=== PATIENT | male | born 1935 | race Caucasian/White ===

== ENCOUNTER 2017-10-16 17:15 | Inpatient (IN) | payer MEDICARE ==
[~2017-10-16] VITALS: Ht 180.3 cm; Wt 103.3 kg
[~2017-10-16 17:15] MED LIST: AMIO5TAB PO; DONE10TA7 PO; FURO20TA PO; GABA300C5 PO; GLUCTAB PO; HYDR-3366 PO; LISI10TA3 PO; MEMA1TAB2 PO; PERI8.6T PO; POTA1TAB4 PO; PRIM50TA5 PO; SIMV40TA PO; TAMS0.4C4 PO; VITA200012 PO; WALKER/ADULT/FO1 MIS; WARF-23 PO
[2017-10-16 17:26] VITALS: BP 105/54; PULSE 85; RESP 18; TEMP 100.3; O2SAT 92
[2017-10-16] MEDS ORDERED: SODIUM CHLOR 0.9% 1000 ML INJ 1,000 ML IV ONE ×2 (19:13→19:43)
[2017-10-16] MEDS ORDERED: cefTRIAXone INJ 1,000 MG in SODIUM CHLORIDE 0.9% INJ 100 ML IV ONE (19:15)
[2017-10-16] MEDS ORDERED: INSULIN HUMAN REGULAR 1,000 UNITS/10 ML VIAL IV PUSH ONE ×2 (19:15→20:45)
[2017-10-16] MEDS ORDERED: SODIUM CHLORIDE 0.9% FLUSH 10 ML FLUSH IVF PRN (19:15)
[2017-10-16 19:17] VITALS: BP 84/53; PULSE 74; RESP 16; O2SAT 92
--- NOTE | 2017-10-16 19:24 | PD ---
HPI Chief Complaint: Complaint Time Seen by Provider: 19:02 Travel History International Travel<30 days: No Contact w/Intl Traveler<30days: No Traveled to known affect area: No History of Present Illness HPI This patient is brought in by his children. He has dementia and lives with his daughter. He has history of A. fib on Coumadin. He is a chronic smoker refusing to quit. He has a cane at home but usually refuses to use it. He's had low-grade temperature today. He has a chronic smoker's cough. He had a fall today. He did not strike his head. He denies any pain symptoms. He's been urinating frequently. He is a diabetic on metformin. He never checks his sugar. Symptoms moderately severe. No alleviating factors. Symptoms exacerbated by noncompliance and dementia PFSH Past Medical History Hx Anticoagulant Therapy: Yes Asthma: No Atrial Fibrillation: Yes Blood Disorders: No Anxiety: Yes Heart Rhythm Problems: Yes (AFIB) Cancer: Yes ([facility], 14 YRS AGO) Cardiac Catheterization: Yes Cardiovascular Problems: Yes Chemotherapy: No Chest Pain: Yes Congestive Heart Failure: Yes COPD: No Diabetes: Yes Patient Takes Glucophage: Yes Diminished Hearing: No Endocrine: Yes (NIDM) Gastrointestinal Disorders: No GERD: Yes Genitourinary: No Hypertension: Yes Immune Disorder: No Implanted Vascular Access Dvce: No Kidney Stones: No Musculoskeletal: No Neurologic: No Psychiatric: No Reproductive: No Respiratory: No Immunizations Current: Yes Myocardial Infarction: No Radiation Therapy: No Renal Failure: No Sleep Apnea: Yes (WEARS A MASK TO SLEEP) Thyroid Disease: No ?: Not Past Surgical History Abdominal Surgery: Yes ([facility], BILATERAL HERNIA ABD) AICD: No Arteriovenous Shunt: No Cardiac Surgery: No Cholecystectomy: Yes ([facility]) Ear Surgery: No Endocrine Surgery: No Eye Surgery: No Genitourinary Surgery: No Gynecologic Surgery: No Insulin Pump: No Joint Replacement: No Neurologic Surgery: No Oral Surgery: No Pacemaker: No Thoracic Surgery: No Tonsillectomy: Yes Other Surgery: Yes Social History Alcohol Use: No Tobacco Use: Yes (1 PPD) Substance Use: No Allergies-Medications (Allergen,Severity, Reaction): Coded Allergies: No Known Allergies (Verified Allergy, Unknown, 10/16/17) Reported Meds & Prescriptions Reported Meds & Active Scripts Active Furosemide 20 Mg Tab 20 Mg PO BID Glucophage XR (Metformin HCl) 500 Mg Brittany 500 Mg PO DAILY With evening meal Walker/Adult/Folding (Device) 1 Mis Mis Ea .ROUTE DIRECTED Tamsulosin (Tamsulosin HCl) 0.4 Mg Cap 0.4 Mg PO HS Amiodarone (Amiodarone HCl) 200 Mg Tab 1 Tab PO DAILY Lisinopril 10 Mg Tab 10 Mg PO BID K-Tab (Potassium Chloride) 20 Meq Tab 20 Meq PO DAILY Simvastatin 40 Mg Tab 40 Mg PO HS Primidone 50 Mg Tab 50 Mg PO DAILY Gabapentin 300 Mg Cap 300 Mg PO BID Reported Warfarin 5 Mg Tab 1 Mg PO DAILY 2 mg on , , , ball 1 mg mo, we Donepezil 10 Mg Tab 10 Mg PO HS Memantine 10 Mg Tab 10 Mg PO BID Review of Systems General / Constitutional: Positive: Fever Eyes: No: Visual changes HENT: No: Headaches Cardiovascular: Positive: Irregular Rhythm, No: Chest Pain or Discomfort Respiratory: No: Shortness of Breath Gastrointestinal: No: Abdominal Pain Genitourinary: Positive: Frequency, Incontinence Musculoskeletal: No: Pain Skin: Positive Rash Neurologic: No: Weakness Psychiatric: No: Depression Endocrine: No: Polydipsia Hematologic/Lymphatic: No: Easy Bruising Physical Exam Narrative GENERAL: Well-nourished, well-developed patient who is falling and incontinent of urine . SKIN: Focused skin assessment reveals no rash and nodules. Skin is Warm and dry. HEAD: Atraumatic. Normocephalic. EYES: Pupils equal and round. No scleral icterus. No injection or drainage. ENT: No nasal bleeding or discharge. Mucous membranes pink and moist. NECK: Trachea midline. No JVD. CARDIOVASCULAR: Irregularly irregular rhythm. No murmur appreciated. RESPIRATORY: No accessory muscle use. Clear to auscultation. Breath sounds equal bilaterally. GASTROINTESTINAL: Abdomen soft, non-tender, nondistended. Hepatic and splenic margins not palpable. MUSCULOSKELETAL: No obvious deformities. No clubbing. No cyanosis. No edema. NEUROLOGICAL: Awake and alert. No obvious cranial nerve deficits. Motor grossly within normal limits. Normal speech. PSYCHIATRIC: Appropriate mood and affect; insight and judgment reduced . : Noncircumcised penis. Foreskin is somewhat scarred and difficult to retract fully. Hygiene is poor. There is a candidal rash in the groin Data Data Last Documented VS Vital Signs Date Time Temp Pulse Resp B/P (MAP) Pulse Ox O2 Delivery O2 Flow Rate FiO2 10/16/17 20:58 99.2 77 16 98/58 (71) 97 Nasal Cannula 2.00 Orders Orders Complete Blood Count With Diff (10/16/17 19:13) Comprehensive Metabolic Panel (10/16/17 19:13) Beta Hydroxybutyrate (Acetone) (10/16/17 19:13) Urinalysis - C+S If Indicated (10/16/17 19:13) Blood Culture (10/16/17 19:13) Chest, Single Ap (10/16/17 19:13) Arterial Blood Gas (Abg) (10/16/17 19:13) Ecg Monitoring (10/16/17 19:13) Iv Access Insert/Monitor (10/16/17 19:13) Oximetry (10/16/17 19:13) Sodium Chlor 0.9% 1000 Ml Inj (Ns 1000 M (10/16/17 19:13) Sodium Chlor 0.9% 1000 Ml Inj (Ns 1000 M (10/16/17 19:43) Sodium Chloride 0.9% Flush (Ns Flush) (10/16/17 19:15) Ceftriaxone Inj (Rocephin Inj) (10/16/17 19:15) Insulin Human Regular Inj (Novolin R Inj (10/16/17 19:15) Prothrombin Time / Inr (Pt) (10/16/17 19:13) Electrocardiogram (10/16/17 ) Insulin Human Regular Inj (Novolin R Inj (10/16/17 20:45) Admit Order (Ed Use Only) (10/16/17 21:35) Labs Laboratory Tests Test 10/16/17 19:00 10/16/17 19:20 10/16/17 20:35 White Blood Count 9.5 TH/MM3 Red Blood Count 4.86 MIL/MM3 Hemoglobin 15.1 GM/DL Hematocrit 46.8 % Mean Corpuscular Volume 96.4 FL Mean Corpuscular Hemoglobin 31.0 PG Mean Corpuscular Hemoglobin Concent 32.2 % Red Cell Distribution Width 13.5 % Platelet Count 198 TH/MM3 Mean Platelet Volume 9.0 FL Neutrophils (%) (Auto) 87.5 % Lymphocytes (%) (Auto) 7.4 % Monocytes (%) (Auto) 4.2 % Eosinophils (%) (Auto) 0.3 % Basophils (%) (Auto) 0.6 % Neutrophils # (Auto) 8.3 TH/MM3 Lymphocytes # (Auto) 0.7 TH/MM3 Monocytes # (Auto) 0.4 TH/MM3 Eosinophils # (Auto) 0.0 TH/MM3 Basophils # (Auto) 0.1 TH/MM3 CBC Comment DIFF FINAL Differential Comment Prothrombin Time 25.1 SEC Prothromb Time International Ratio 2.5 RATIO Blood Urea Nitrogen 33 MG/DL Creatinine 2.00 MG/DL Random Glucose 629 MG/DL Total Protein 7.7 GM/DL Albumin 3.1 GM/DL Calcium Level 8.0 MG/DL Alkaline Phosphatase 125 U/L Aspartate Amino Transf (AST/SGOT) 25 U/L Alanine Aminotransferase (ALT/SGPT) 33 U/L Total Bilirubin 0.7 MG/DL Sodium Level 125 MEQ/L Potassium Level 4.9 MEQ/L Chloride Level 90 MEQ/L Carbon Dioxide Level 25.2 MEQ/L Anion Gap 10 MEQ/L Estimat Glomerular Filtration Rate 32 ML/MIN B-Hydroxybutyrate 0.45 MMOL/L Blood Gas Puncture Site RT RADIAL Blood Gas Patient Temperature 100.3 Blood Gas HCO3 23 mmol/L Blood Gas Base Excess -0.7 mmol/L Blood Gas Oxygen Saturation 89 % Arterial Blood pH 7.41 Arterial Blood Partial Pressure CO2 37 mmHG Arterial Blood Partial Pressure O2 67 mmHG Arterial Blood Oxygen Content 18.8 Vol % Arterial Blood Carboxyhemoglobin 2.8 % Arterial Blood Methemoglobin 1.1 % Blood Gas Hemoglobin 15.0 G/DL Oxygen Delivery Device ROOM AIR Blood Gas Inspired Oxygen 21 % Urine Color YELLOW Urine Turbidity SLIGHT Urine pH 5.5 Urine Specific [place] 1.028 Urine Protein NEG mg/dL Urine Glucose (UA) 1000 OR GREATER mg/dL Urine Ketones NEG mg/dL Urine Occult Blood TRACE Urine Nitrite NEG Urine Bilirubin NEG Urine Leukocyte Esterase NEG Urine RBC 0-3 /hpf Urine WBC 0-2 /hpf Urine Squamous Epithelial Cells 0-5 /hpf Microscopic Urinalysis Comment CULT NOT INDICATED MDM Medical Decision Making Medical Screen Exam Complete: Yes Emergency Medical Condition: Yes Medical Record Reviewed: Yes Differential Diagnosis Hyperglycemia, DKA, pneumonia Narrative Course I have reviewed the patient's electronic medical record. Patient is critically ill. He is critical high blood sugar and is hypotensive at 88 systolic blood pressure Patient's critical high Accu-Chek 2 IVs placed I gave him 2 L normal saline IV bolus and 10 units IV regular insulin and 1 g IV Rocephin CBC is normal Metabolic profile shows hyperglycemia with some renal insufficiency and normal bicarbonate LFTs are normal Urinalysis is clean I reviewed his chest x-ray which shows chronic interstitial changes the same as prior I reviewed his EKG which shows A. fib which is chronic Beta hydroxybutyrate is slightly elevated at 0.45 ABG shows normal pH and bicarbonate but slightly hypoxic After the above therapy sugar was in the 500s I gave him 10 units IV regular insulin for second time Sugar in the third check was 4:15 Patient's blood pressures come up to 98 systolic He never was tachycardic Is more stabilized now but will require hospitalization. I don't thing he retires intensive care at this time. I reviewed with hospitalist will admit He is getting his third liter of saline at this time Critical Care Narrative Aggregate critical care time was 40 minutes. Time to perform other separately billable procedures was not included in the critical care time. My time did not include minutes spent treating any other patients simultaneously or on activities that did not directly contribute to the patient's treatment. The services I provided to this patient were to treat and/or prevent clinically significant deterioration that could result in: Cardiac arrhythmia, cardiogenic shock, cardiopulmonary arrest I provided critical care services requiring my management, as noted below: Chart data review, documentation time, medication orders and management, vital sign assessments/reviewing monitor data, ordering and reviewing lab tests, ordering and interpreting/reviewing x-rays and diagnostic studies, care of the patient and discussion of the patient with the admitting physicians. Diagnosis Primary Impression: Hyperglycemia due to type 2 diabetes mellitus Qualified Codes: E11.65 - Type 2 diabetes mellitus with hyperglycemia Additional Impressions: Hypotension arterial Qualified Codes: I95.9 - Hypotension, unspecified Hypoxia Admitting Information Admitting Physician Requests: Barrett Juan MD Oct 16, 2017 19:24
[2017-10-16 19:31] LABS: BLOOD GAS BASE EXCESS -0.7 mmol/L (-2-2); BLOOD GAS CARBOXYHEMOGLOBIN 2.8 % (0-4); BLOOD GAS HCO3 23 mmol/L (22-26); BLOOD GAS METHEMOGLOBIN 1.1 % (0-2); BLOOD GAS O2 HGB SATURATION 89 % (90-100); BLOOD GAS OXYGEN CONTENT 18.8 Vol % (12.0-20.0); BLOOD GAS PCO2 37 mmHG (38-42); BLOOD GAS PO2 67 mmHG (61-120); CRITICAL VALUE YES; FIO2 21 %; OXYGEN DEVICE ROOM AIR; TEMP CORR TO 100.3
[2017-10-16 19:32] VITALS: O2SAT 94
[2017-10-16 19:32] LABS: DRAW SITE RT RADIAL; NUMBER OF ARTERIAL PUNCTURES 1; STAT YES; ULNAR PULSE PRESENT
[2017-10-16 19:39] VITALS: BP 96/52; PULSE 77; RESP 16; O2SAT 97
[2017-10-16 19:40] LABS: AUTOMATED NEUTROPHIL # 8.3 TH/MM3 (1.8-7.7); BASOPHIL # 0.1 TH/MM3 (0-0.2); BASOPHIL % 0.6 % (0.0-2.0); EOSINOPHIL % 0.3 % (0.0-4.0); HEMATOCRIT 46.8 % (39.0-51.0); HEMO FLAGS DIFF FINAL; LYMPH % 7.4 % (9.0-44.0); LYMPHOCYTE # 0.7 TH/MM3 (1.0-4.8); MEAN CELL VOLUME 96.4 FL (80.0-100.0); MEAN CORPUSCULAR HGB CONC 32.2 % (32.0-36.0); MONO % 4.2 % (0.0-8.0); NEUT % 87.5 % (16.0-70.0); PLATELET COUNT 198 TH/MM3 (150-450); RED BLOOD COUNT 4.86 MIL/MM3 (4.50-5.90); RED CELL DISTRIBUTION WIDTH 13.5 % (11.6-17.2); WHITE BLOOD COUNT 9.5 TH/MM3 (4.0-11.0)
[2017-10-16 19:57] LABS: CHLORIDE 90 MEQ/L (98-107); POTASSIUM 4.9 MEQ/L (3.5-5.1); SODIUM (NA) 125 MEQ/L (136-145)
[2017-10-16 20:00] LABS: ANION GAP 10 MEQ/L (5-15); BICARBONATE 25.2 MEQ/L (21.0-32.0); BLOOD UREA NITROGEN 33 MG/DL (7-18); INTERNATIONAL NORMALIZED RATIO 2.5 RATIO; PROTHROMBIN TIME - PATIENT 25.1 SEC (9.8-11.6)
[2017-10-16 20:03] LABS: ALT (GPT) 33 U/L (12-78); AST (GOT) 25 U/L (15-37); GLOMERULAR FILTRATION RATE 32 ML/MIN (>89)
[2017-10-16 20:04] LABS: TOTAL BILIRUBIN ADULT 0.7 MG/DL (0.2-1.0)
[2017-10-16 20:29] LABS: ALKALINE PHOSPHATASE 125 U/L (45-117); BETA-HYDROXYBUTYRATE 0.45 MMOL/L (0.00-0.39)
--- NOTE | 2017-10-16 20:42 | RADRPT ---
EXAM DATE/TIME: 10/16/2017 19:52 [facility] COMPARISON: CHEST PA & LAT, April 13, 2016, 14:26. CHEST SINGLE AP, February 14, 2015, 18:26. INDICATIONS : Shortness of breath. MEDICAL HISTORY : Hypertension. Congestive heart failure. SURGICAL HISTORY : Cardiac catheterization. ENCOUNTER: Initial ACUITY: 1 day PAIN SCORE: 0/10 LOCATION: Bilateral chest FINDINGS: Chronic interstitial prominence in the mid and lower lungs with no focal areas of consolidation. The findings are similar to prior chest x-rays in 2014 and 2015. The heart is upper limits normal size for AP technique. The central bronchopulmonary markings are indistinct and there is some questionabl e peribronchial thickening. The hemidiaphragms are well delineated. CONCLUSION: Chronic interstitial disease is similar in severity to prior chest x-rays. No focal areas of consoli dation. Jaron Martins MD on October 16, 2017 at 20:38 Board Certified Radiologist. This report was verified electronically.
[2017-10-16 20:44] LABS: GLUCOSE,URINE 1000 OR GREATER mg/dL (NEG); KETONE, URINE NEG (NEG); NITRITE,URINE NEG (NEG); PH, URINE 5.5 (5.0-8.5)
[2017-10-16 20:53] LABS: BLOOD, URINE TRACE (NEG)
[2017-10-16 20:54] LABS: COMMENT (UR) CULT NOT INDICATED; CULTURE IF INDICATED CULT NOT INDICATED; RBC, URINE 0-3 /hpf (0-3); SQUAMOUS EPITHELIAL CELL URINE 0-5 /hpf (0-5); URINE COLOR YELLOW (YELLW/STRAW); WBC, URINE 0-2 /hpf (0-5)
[2017-10-16 20:58] VITALS: BP 98/58; PULSE 77; RESP 16; TEMP 99.2; O2SAT 97
[2017-10-16] MEDS: SODIUM CHLOR 0.9% 1000 ML INJ 1,000 ML IV SCH (22:05)
[2017-10-16] MEDS ORDERED: RESP: ALBUTEROL 2.5 MG/IPRATROPIUM 0.5 MG NEB (PRN) NEB (22:15)
[2017-10-16] MEDS ORDERED: DEXTROSE 50% IN WATER 50 ML VIAL(D50) IV PUSH PRN (22:15)
[2017-10-16] MEDS ORDERED: NALOXONE HCL 0.4 MG/ML AMP IV PUSH PRN (22:15)
[2017-10-16] MEDS ORDERED: ONDANSETRON HCL 4 MG/2 ML VIAL IVP PRN (22:15)
[2017-10-16] MEDS ORDERED: GLUCAGON 1 MG/ML VIAL OTHER PRN (22:15)
[2017-10-16] MEDS ORDERED: ACETAMINOPHEN 325 MG TAB PO PRN (22:15)
[2017-10-16] MEDS ORDERED: LACTULOSE SYRUP 20 GM/30 ML CUP PO PRN (22:15)
[2017-10-16] MEDS ORDERED: SENNOSIDES 8.6 MG TAB PO PRN (22:15)
[2017-10-16] MEDS ORDERED: BISACODYL 10 MG SUPP RECTAL PRN (22:15)
[2017-10-16] MEDS ORDERED: SODIUM CHLORIDE 0.9% FLUSH 10 ML FLUSH IV FLUSH PRN (22:15)
[2017-10-16] MEDS ORDERED: MAGNESIUM HYDROXIDE SUSP 30 ML CUP PO PRN (22:15)
[2017-10-16 22:46] VITALS: BP 90/52; PULSE 78; RESP 16; O2SAT 97
[2017-10-17] MEDS ORDERED: INSULIN ASPART 1,000 UNITS/10 ML VIAL SQ ONE (02:00)
[2017-10-17] MEDS ORDERED: HEPARIN SODIUM - SQ 10,000 UNITS/ML VIAL SQ SCH (06:00)
[2017-10-17 06:23] LABS: AUTOMATED NEUTROPHIL # 4.9 TH/MM3 (1.8-7.7); BASOPHIL % 0.2 % (0.0-2.0); EOSINOPHIL # 0.1 TH/MM3 (0-0.4); EOSINOPHIL % 1.4 % (0.0-4.0); HEMATOCRIT 37.6 % (39.0-51.0); HEMO FLAGS DIFF FINAL; LYMPHOCYTE # 1.2 TH/MM3 (1.0-4.8); MEAN CELL VOLUME 93.6 FL (80.0-100.0); MEAN CORPUSCULAR HEMOGLOBIN 30.8 PG (27.0-34.0); MEAN CORPUSCULAR HGB CONC 32.9 % (32.0-36.0); MONO % 9.1 % (0.0-8.0); NEUT % 71.3 % (16.0-70.0); PLATELET COUNT 168 TH/MM3 (150-450); RED BLOOD COUNT 4.02 MIL/MM3 (4.50-5.90); RED CELL DISTRIBUTION WIDTH 13.2 % (11.6-17.2); WHITE BLOOD COUNT 6.8 TH/MM3 (4.0-11.0)
[2017-10-17 06:58] LABS: BICARBONATE 24.2 MEQ/L (21.0-32.0); POTASSIUM 3.6 MEQ/L (3.5-5.1)
[2017-10-17 07:17] LABS: CALCIUM-PROTEIN CORRECTED 7.6 MG/DL (8.5-10.1)
[2017-10-17 07:45] VITALS: O2SAT 92
[2017-10-17 08:00] VITALS: BP 124/66; PULSE 66; RESP 16; TEMP 98; O2SAT 91
[2017-10-17] MEDS ORDERED: INSULIN ASPART SUPPLEMENTAL SCALE SQ SCH (08:00)
[2017-10-17] MEDS ORDERED: WARF4TAB52 PO (10:13)
[2017-10-17] MEDS ORDERED: METF500T PO (10:13)
[2017-10-17] MEDS: SODIUM CHLOR 0.9% 1000 ML INJ 1,000 ML IV SCH ×2 (10:57→22:58)
[2017-10-17] MEDS: INSULIN ASPART SUPPLEMENTAL SCALE SQ SCH ×2 (10:58→13:16)
[2017-10-17] MEDS: SODIUM CHLORIDE 0.9% FLUSH 10 ML FLUSH IV FLUSH SCH ×2 (10:58→19:57)
[2017-10-17] MEDS: DOCUSATE SODIUM 50 MG/SENNA 8.6 MG TAB PO SCH ×2 (10:59→19:56)
--- NOTE | 2017-10-17 11:43 | MH ---
cc: MUNA DE OLIVEIRA M.D. DATE OF ADMISSION 10/16/2017 ADMISSION DIAGNOSIS 1. Severe hyperglycemia secondary to type 2 diabetes mellitus that was uncontrolled. 2. Type 2 diabetes mellitus with neuropathy and nephropathy. 3. Hyponatremia, likely secondary to his hyperglycemia. 4. Chronic dementia with acute increased confusion, likely secondary to his hyperglycemia. 5. Paroxysmal atrial fibrillation on amiodarone and warfarin. 6. Long history of cardiomyopathy and prior CHF - compensated. 7. Coronary artery disease. 8. Hypertension. 9. Hyperlipidemia. 10. Stage III chronic kidney disease. 11. COPD. 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 13. Atherosclerosis of the aorta. 14. Tortuous aorta. 15. Prior endovascular repair of abdominal aortic aneurysm. 16. BPH. 17. Obstructive sleep apnea but not using CPAP. 18. History of colon cancer with prior partial colectomy. 19. Smoker. PERTINENT HISTORY This is a 81-year-old [place] male who lives with his daughter. He was brought to the hospital by his daughter. He has dementia. He apparently uses a cane at home at times but usually refuses to. He had a fall on the day of admission. He did not strike his head. He apparently was a little more confused. On the day of admission he had possibly not taken his metformin for a few days. He does not check his blood sugar regularly. His daughter does try to check on his medications and set them out for him in a pill box container. He had been urinating more frequently in the last few days. He had a slight cough. There was no documentation of any increased cough than his usual smoker's cough. There was question of whether he had a low grade fever but it does not sound like it was checked at home. He came into the ED and his blood sugar was in the 600s. His sodium was low at 125. BUN was 33 and creatinine 2.0 with a low GFR of 32. The last one in his EHR that I have available is from 2016 and his GFR then was 53. He was admitted last night. There was some confusion. They originally called me for admission but when I checked his insurance through the call center they stated that he was insured by another primary insurance other than [facility]. Subsequently the family practice service was called and they have been putting orders in through the night for him, but this morning it was determined that he truly is a [facility] patient and I was contacted to take over his care. He seems to be much better. I talked to his daughter this morning and went over his healthcare with her and all his medications. She is actually in the room. I had seen the patient earlier this morning and I talked to her on the phone since she was not there when I initially saw the patient. She states that his mental status is back to baseline and he looks much better than he did yesterday. His blood sugar has come down in the 200s this morning. The history was not able to be obtained accurately from the patient so I looked at the history through [facility] EHR and talking with his daughter. PAST MEDICAL HISTORY He has a long history of heart disease. He has had cardiomyopathy and some CHF. He has had atrial fibrillation in the past with two cardioversions and has been on amiodarone for several years and apparently is in sinus rhythm as best I can tell from the records in the EHR. The last EKG that is available was in 2015 and it was sinus rhythm then. Prior Holter monitor showed sinus rhythm with some PACs. He is on warfarin and has been on it for many years. He has had type 2 diabetes mellitus as mentioned with nephropathy and neuropathy. He has stage III chronic kidney disease. He has dementia and is on Aricept and Namenda and sees Dr. Calvo. He also is on primidone for a cerebellar tremor. He has some COPD from smoking but does not use an inhaler on a regular basis and has a Ventolin inhaler but does not regularly use it. He has sleep apnea but his daughter states he has not used a CPAP in two or three years. He has an enlarged prostate and uses tamsulosin to help with his urination. He had colon cancer with partial colectomy around 1987. He had an abdominal aortic aneurysm that was endovascularly repaired in 2013. He had a cardiac cath done in [address] Abreu that showed some moderate disease of the proximal LAD of 50-60% stenosis. He had ostial stenosis of the left circumflex at 20%, proximal RCA at 30%. He has had no thyroid disease, stroke, seizure or peptic ulcer disease. PAST SURGICAL HISTORY 1. Tonsillectomy. 2. Partial colectomy. 3. Endovascular abdominal aortic aneurysm repair. ALLERGIES None. MEDICATIONS He according to the daughter takes: 1. Warfarin 1 mg tablet, two tablets on Monday and Monday, and one tablet on Monday, Monday, , Monday, Monday. 2. Amiodarone 200 mg a day. 3. Aspirin 325 mg a day. 4. Donepezil 10 mg a day. 5. Lasix 20 mg twice a day. 6. Gabapentin 300 mg twice a day. 7. Lisinopril 10 mg twice a day. 8. Memantine (Namenda) 10 mg b.i.d. 9. Metformin 500 mg a day. 10. Primidone 50 mg once a day. 11. Simvastatin 40 mg a day. 12. KCl 20 mEq a day. 13. Tamsulosin 0.4 mg a day. 14. Vitamin-D3 2000 units a day. FAMILY HISTORY His mother in her 30s of a cerebral aneurysm rupture. His father at 75 of possible bladder cancer. SOCIAL HISTORY He lives with his daughter. His brother also lives here. He is a smoker. She thinks he smokes a half-pack to one pack a day. He smoked since he was a teenager. He does not use alcohol. He is . 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 REVIEW OF SYSTEMS GENERAL: No documented fever, chills, sweats. HEENT: Does not complain of any runny nose or sore throat. PULMONARY: He reportedly has occasional cough that is probably from his smoking and not noted to be any respiratory distress. CARDIOVASCULAR: Has not complained of any chest pain. GI: He had not had any vomiting or diarrhea or bleeding. No complaint of pain. : He had been urinating more frequently for the last few days. NEUROLOGIC: Chronic dementia. Slightly more confused likely due to his elevated blood sugar that is improved now that his sugar has come down. PHYSICAL EXAMINATION GENERAL: A pleasant elderly male who is awake and conversant. He has some dementia so his history is not reliable. He denied any medical problems. VITAL SIGNS: Temperature has been 99.2 to 98. Respiratory rate is 16. Pulses range from 66-78. BP is now 124/66. O2 sat has ranged from 91-92% on room air. His O2 sats on 2 liters went up to 94-97%. HEENT: Pupils equal. Sclera non-icteric. Nose without lesion. Mouth without inflammation. NECK: Without JVD. No adenopathy. HEART: Regular rate and rhythm. A faint murmur. LUNGS: Appear clear. ABDOMEN: Soft, nontender, no masses. : In the scrotal area he has some redness and rash, probably due to a candidal organism and inflammation. EXTREMITIES: No edema. Pulses 1+. NEUROLOGIC: Motor strength is symmetrical. Sensation intact. Cranial nerves intact. He has dementia. LABORATORY As mentioned his sugar was 629 last night with a BUN of 33, creatinine 2.0 and sodium 125. AST, ALT and alkaline phosphatase were normal. Albumin was a little low at 3.1. Alkaline phosphatase was 125. Labs this morning at 4:50 a.m.: BUN 27, creatinine 1.6, GFR 42, glucose 293. Urine was negative. INR was 2.5. IMAGING Chest x-ray showed chronic interstitial disease similar to prior chest x-rays. ASSESSMENT As noted. PLAN The patient will be put back on metformin. He will continue to be monitored with sliding scale. Will resume his regular medicines. He will be maintained on his warfarin. Will get a physical therapy consult to ambulate him and case management consult. His daughter would like for him to go home with home health care. His electrolyte imbalances seem to have improved. He was given an injection of ceftriaxone last night in the ED but I do not think he has any underlying infection so I am not going to maintain him on any antibiotics. He was put on heparin subcu last night for DVT prophylaxis but he does not need that since he is on warfarin, so the heparin will be stopped. I will give him some Nystatin cream to apply to the scrotal area. Will cut his IV fluids back a little in view of his history of CHF. I will hold his Lasix for now. MD FERNANDA Hamlin/HALINA /10:27 AM /11:01 AM
[2017-10-17 12:00] VITALS: BP 116/64; PULSE 75; RESP 18; TEMP 98.1; O2SAT 94
--- NOTE | 2017-10-17 13:03 | EKG ---
Date Performed: 10/16/2017 Time Performed: 19:35:49 PTAGE: 81 years EKG: Sinus rhythm NONSPECIFIC ST & T-WAVE ABNORMALITY BORDERLINE ECG PREVIOUS TRACING : 04/13/2016 14.08 Compared to prior tracing no significant change DOCTOR: Chris Murillo Interpretating Date/Time 10/17/2017 13:01:55
[2017-10-17] MEDS ORDERED: DO NOT ADM ANY ANTICOAGULANT DRUGS OTHER PRN (15:00)
[2017-10-17 16:00] VITALS: BP 123/59; PULSE 67; RESP 16; TEMP 97.7; O2SAT 95
[2017-10-17] MEDS ORDERED: WARFARIN SOD 1 MG TAB PO SCH (16:00)
[2017-10-17] MEDS: [UNRECOGNIZED DRUG - REMARK] SQ SCH ×2 (16:46→19:57)
[2017-10-17] MEDS: metFORMIN HCL 500 MG TAB PO SCH (16:47)
[2017-10-17] MEDS: NYSTATIN 100,000 UNIT/GM CREAM 15 GM TOPICAL SCH (19:56)
[2017-10-17] MEDS: GABAPENTIN 300 MG CAP PO SCH (19:57)
[2017-10-17] MEDS: LISINOPRIL 10 MG TAB PO SCH (19:57)
[2017-10-17] MEDS: CALCIUM CARBONATE 1.25 GM (CA 500 MG) TAB PO SCH (19:57)
[2017-10-17] MEDS: MEMANTINE HCL 10 MG TAB PO SCH (19:57)
[2017-10-17 20:00] VITALS: BP 117/57; PULSE 80; RESP 20; TEMP 98.9; O2SAT 92; O2SAT 93
[2017-10-17] MEDS ORDERED: TAMSULOSIN HCL 0.4 MG CAP PO SCH (21:00)
[2017-10-17] MEDS ORDERED: FUROSEMIDE 20 MG TAB PO SCH (21:00)
[2017-10-17] MEDS ORDERED: INSULIN DETEMIR 100 UNITS/ML VIAL SQ SCH (21:00)
[2017-10-17] MEDS ORDERED: DONEPEZIL HCL 5 MG TAB PO SCH (21:00)
[2017-10-17] MEDS ORDERED: PRAVASTATIN SOD 80 MG TAB PO SCH (21:00)
[2017-10-18] VITALS: BP 107/52; PULSE 64; RESP 20; TEMP 98.8; O2SAT 97
[2017-10-18 00:45] LABS: C. DIFF EPI 027 PRESUMPTIVE NEGATIVE (NEGATIVE)
[2017-10-18 06:35] LABS: POTASSIUM 3.4 MEQ/L (3.5-5.1); PROTHROMBIN TIME - PATIENT 20.2 SEC (9.8-11.6)
[2017-10-18 06:46] LABS: AUTOMATED NEUTROPHIL # 4.7 TH/MM3 (1.8-7.7); BASOPHIL % 0.2 % (0.0-2.0); EOSINOPHIL # 0.1 TH/MM3 (0-0.4); EOSINOPHIL % 1.6 % (0.0-4.0); HEMATOCRIT 40.2 % (39.0-51.0); HEMO FLAGS DIFF FINAL; LYMPHOCYTE # 2.4 TH/MM3 (1.0-4.8); MEAN CELL VOLUME 96.3 FL (80.0-100.0); MEAN CORPUSCULAR HEMOGLOBIN 30.7 PG (27.0-34.0); MEAN CORPUSCULAR HGB CONC 31.8 % (32.0-36.0); NEUT % 57.2 % (16.0-70.0); PLATELET COUNT 173 TH/MM3 (150-450); RED BLOOD COUNT 4.17 MIL/MM3 (4.50-5.90); RED CELL DISTRIBUTION WIDTH 13.6 % (11.6-17.2); WHITE BLOOD COUNT 8.1 TH/MM3 (4.0-11.0)
[2017-10-18 06:59] LABS: BICARBONATE 22.5 MEQ/L (21.0-32.0)
[2017-10-18 08:00] VITALS: BP 109/62; PULSE 67; RESP 12; TEMP 97.2; O2SAT 93; O2SAT 94
[2017-10-18] MEDS: [UNRECOGNIZED DRUG - REMARK] SQ SCH ×2 (08:00→12:00)
[2017-10-18] MEDS: metFORMIN HCL 500 MG TAB PO SCH (08:02)
[2017-10-18] MEDS: GABAPENTIN 300 MG CAP PO SCH (08:03)
[2017-10-18] MEDS: CALCIUM CARBONATE 1.25 GM (CA 500 MG) TAB PO SCH (08:03)
[2017-10-18] MEDS: LISINOPRIL 10 MG TAB PO SCH (08:03)
[2017-10-18] MEDS: MEMANTINE HCL 10 MG TAB PO SCH (08:03)
[2017-10-18] MEDS: NYSTATIN 100,000 UNIT/GM CREAM 15 GM TOPICAL SCH (08:05)
[2017-10-18] MEDS ORDERED: PRIMIDONE 50 MG TAB PO SCH (09:00)
[2017-10-18] MEDS: DOCUSATE SODIUM 50 MG/SENNA 8.6 MG TAB PO SCH (09:00)
[2017-10-18] MEDS ORDERED: POTASSIUM CHLORIDE 20 MEQ CONTROLLED RELEASE TAB PO SCH (09:00)
[2017-10-18] MEDS: SODIUM CHLORIDE 0.9% FLUSH 10 ML FLUSH IV FLUSH SCH (09:00)
[2017-10-18] MEDS ORDERED: AMIODARONE 200 MG TAB PO SCH (09:00)
[2017-10-18] MEDS: SODIUM CHLOR 0.9% 1000 ML INJ 1,000 ML IV SCH (09:51)
[2017-10-18 12:00] VITALS: BP 125/65; PULSE 60; RESP 16; TEMP 96.9; O2SAT 97
[2017-10-18] MEDS ORDERED: POTASSIUM CHLORIDE 20 MEQ CONTROLLED RELEASE TAB PO ONE (12:00)
--- NOTE | 2017-10-18 13:26 | HHI.PR ---
Subjective Remarks Patient has no complaints. He is not in any distress. His blood sugars were much better today. Objective Vitals Vital Signs Date Time Temp Pulse Resp B/P (MAP) Pulse Ox O2 Delivery O2 Flow Rate FiO2 10/18/17 08:00 97.2 67 12 109/62 (78) 94 10/18/17 08:00 93 21 10/18/17 00:00 98.8 64 20 107/52 (70) 97 10/17/17 20:00 98.9 80 20 117/57 (77) 93 10/17/17 20:00 92 21 10/17/17 16:00 97.7 67 16 123/59 (80) 95 10/18/17 10/18/17 10/19/17 15:00 23:00 07:00 Intake Total 242 ml Balance 242 ml Intake Oral 242 ml # Voids 2 # Bowel Movements 1 Result Diagram: 10/18/17 0500 10/18/17 0500 Other Results Laboratory Tests Test 10/16/17 19:00 10/16/17 19:20 10/16/17 20:35 10/17/17 04:50 White Blood Count 9.5 TH/MM3 6.8 TH/MM3 Red Blood Count 4.86 MIL/MM3 4.02 MIL/MM3 Hemoglobin 15.1 GM/DL 12.4 GM/DL Hematocrit 46.8 % 37.6 % Mean Corpuscular Volume 96.4 FL 93.6 FL Mean Corpuscular Hemoglobin 31.0 PG 30.8 PG Mean Corpuscular Hemoglobin Concent 32.2 % 32.9 % Red Cell Distribution Width 13.5 % 13.2 % Platelet Count 198 TH/MM3 168 TH/MM3 Mean Platelet Volume 9.0 FL 9.1 FL Neutrophils (%) (Auto) 87.5 % 71.3 % Lymphocytes (%) (Auto) 7.4 % 18.0 % Monocytes (%) (Auto) 4.2 % 9.1 % Eosinophils (%) (Auto) 0.3 % 1.4 % Basophils (%) (Auto) 0.6 % 0.2 % Neutrophils # (Auto) 8.3 TH/MM3 4.9 TH/MM3 Lymphocytes # (Auto) 0.7 TH/MM3 1.2 TH/MM3 Monocytes # (Auto) 0.4 TH/MM3 0.6 TH/MM3 Eosinophils # (Auto) 0.0 TH/MM3 0.1 TH/MM3 Basophils # (Auto) 0.1 TH/MM3 0.0 TH/MM3 CBC Comment DIFF FINAL DIFF FINAL Differential Comment Prothrombin Time 25.1 SEC Prothromb Time International Ratio 2.5 RATIO Blood Urea Nitrogen 33 MG/DL 27 MG/DL Creatinine 2.00 MG/DL 1.60 MG/DL Random Glucose 629 MG/DL 293 MG/DL Total Protein 7.7 GM/DL 6.1 GM/DL Albumin 3.1 GM/DL Calcium Level 8.0 MG/DL 7.1 MG/DL Alkaline Phosphatase 125 U/L Aspartate Amino Transf (AST/SGOT) 25 U/L Alanine Aminotransferase (ALT/SGPT) 33 U/L Total Bilirubin 0.7 MG/DL Sodium Level 125 MEQ/L 135 MEQ/L Potassium Level 4.9 MEQ/L 3.6 MEQ/L Chloride Level 90 MEQ/L 102 MEQ/L Carbon Dioxide Level 25.2 MEQ/L 24.2 MEQ/L Anion Gap 10 MEQ/L 9 MEQ/L Estimat Glomerular Filtration Rate 32 ML/MIN 42 ML/MIN B-Hydroxybutyrate 0.45 MMOL/L Blood Gas Puncture Site RT RADIAL Blood Gas Patient Temperature 100.3 Blood Gas HCO3 23 mmol/L Blood Gas Base Excess -0.7 mmol/L Blood Gas Oxygen Saturation 89 % Arterial Blood pH 7.41 Arterial Blood Partial Pressure CO2 37 mmHG Arterial Blood Partial Pressure O2 67 mmHG Arterial Blood Oxygen Content 18.8 Vol % Arterial Blood Carboxyhemoglobin 2.8 % Arterial Blood Methemoglobin 1.1 % Blood Gas Hemoglobin 15.0 G/DL Oxygen Delivery Device ROOM AIR Blood Gas Inspired Oxygen 21 % Urine Color YELLOW Urine Turbidity SLIGHT Urine pH 5.5 Urine Specific [place] 1.028 Urine Protein NEG mg/dL Urine Glucose (UA) 1000 OR GREATER mg/dL Urine Ketones NEG mg/dL Urine Occult Blood TRACE Urine Nitrite NEG Urine Bilirubin NEG Urine Leukocyte Esterase NEG Urine RBC 0-3 /hpf Urine WBC 0-2 /hpf Urine Squamous Epithelial Cells 0-5 /hpf Microscopic Urinalysis Comment CULT NOT INDICATED Protein Corrected Calcium 7.6 MG/DL Test 10/17/17 22:30 10/18/17 05:00 Stool C. difficile Toxin (PCR) NEGATIVE Stl C. difficile Toxin Epiderm 027 PRESUMPTIVE NEGATIVE White Blood Count 8.1 TH/MM3 Red Blood Count 4.17 MIL/MM3 Hemoglobin 12.8 GM/DL Hematocrit 40.2 % Mean Corpuscular Volume 96.3 FL Mean Corpuscular Hemoglobin 30.7 PG Mean Corpuscular Hemoglobin Concent 31.8 % Red Cell Distribution Width 13.6 % Platelet Count 173 TH/MM3 Mean Platelet Volume 8.8 FL Neutrophils (%) (Auto) 57.2 % Lymphocytes (%) (Auto) 30.0 % Monocytes (%) (Auto) 11.0 % Eosinophils (%) (Auto) 1.6 % Basophils (%) (Auto) 0.2 % Neutrophils # (Auto) 4.7 TH/MM3 Lymphocytes # (Auto) 2.4 TH/MM3 Monocytes # (Auto) 0.9 TH/MM3 Eosinophils # (Auto) 0.1 TH/MM3 Basophils # (Auto) 0.0 TH/MM3 CBC Comment DIFF FINAL Differential Comment Prothrombin Time 20.2 SEC Prothromb Time International Ratio 2.0 RATIO Blood Urea Nitrogen 16 MG/DL Creatinine 1.00 MG/DL Random Glucose 155 MG/DL Calcium Level 7.5 MG/DL Sodium Level 138 MEQ/L Potassium Level 3.4 MEQ/L Chloride Level 107 MEQ/L Carbon Dioxide Level 22.5 MEQ/L Anion Gap 9 MEQ/L Estimat Glomerular Filtration Rate 72 ML/MIN Imaging Last Impressions Chest X-Ray 10/16/[id number] Signed Impressions: Service Date/Time: Monday, October 16, 2017 19:52 - CONCLUSION: Chronic interstitial disease is similar in severity to prior chest x-rays. No focal areas of consolidation. Jaron Martins MD Objective Remarks Exam: Pleasant male in no distress. He is conversant. He is alert. He does have some dementia. HEENT: Pupils equal, no scleral icterus. Mouth negative. Neck: No JVD Heart: RRR with no murmurs Lungs: Clear Abdomen: Soft, nontender, no masses Extremities: No edema Neuro: Mild dementia. No motor or sensory deficits. CN's intact. 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 --Paroxysmal atrial fibrillation on Amiodarone and Warfarin --Cardiomyopathy with history of CHF--compensated --Coronary artery disease --Hypertension --Hyperlipidemia --COPD --Stage 2 CKD --Cerebellar tremor --Prior endovascular repair of a AAA --Atherosclerosis of the aorta/Tortuous aorta --BPH --Obstructive sleep apnea--he hasn't used CPAP for a long time --Hx of cancer of the colon with prior partial nephrectomy --Smoker Plan: He is significantly improved from admission and clinically stable so he will be discharged home today with home health care. He will be on Levemir insulin 10 units at 9:00PM and on Metformin 1000mg twice a day. I talked with his daughter and she knows how to give insulin shots because she used to do this for her mother and she herself used to be a diabetic before she lost a large amount of weight. She will monitor his fasting glucose levels. She stated to me that she already has an appointment tomorrow with his PCP for followup. I will decrease his Furosemide 20mg twice a day to one daily at home. His other medications will be the same. Chris Hensley MD Oct 18, 2017 13:26
[2017-10-18] MEDS ORDERED: METF500 PO (13:47)
[2017-10-18] MEDS ORDERED: FURO20TA PO (13:47)
[2017-10-18] MEDS ORDERED: CALC500 PO (13:47)
[2017-10-18] MEDS ORDERED: LEVEMIR SQ (13:47)
[2017-10-18] MEDS ORDERED: POTA1TAB4 PO (13:47)
[2017-10-18] MEDS ORDERED: NYST15T TOPICAL (13:47)
--- NOTE | 2017-10-18 13:56 | HHI.FF ---
Face to Face Verification Diagnosis: (1) Type 2 diabetes, uncontrolled, with neuropathy (2) Type 2 diabetes mellitus with nephropathy (3) Chronic dementia (4) Paroxysmal atrial fibrillation (5) Cardiomyopathy (6) Coronary artery disease (7) Hypertension (8) Cerebellar tremor (9) ANTICOAGULANTS,LT,CURRENT USE Physical Therapy Order: Evaluate and Treat, Strength and gait training Occupational Therapy Order: Evaluate and Treat Home Health Nursing Order: Medical education Diabetic education Nursing assessment with vital signs Home Health Aide Order: To Assist In: Bathing and personal care I have seen patient Sidney Romeo on 10/18/17. My clinical findings support the need for the requested home health care services because: Patient has chronic dementia and lives with his daughter. He has had uncontrolled diabetes and came into the hospital with severe hyperglycemia and increased confusion. He was started on Levemir Insulin at night in the hospital along with increasing his dose of Metformin. He will need some physical therapy to insure stability. He is to use a walker. Monitoring of his vital signs and further diabetic education will be helpful. His daughter is qualified to administer his insulin. Med compliance is questionable Impaired cognition/judgement Injectable med education/admin I certify that my clinical findings support that this patient is homebound because: Impaired cognitive ability/safety Unsteady gait/balance Chris Hensley MD Oct 18, 2017 13:56
[2017-10-18] MEDS ORDERED: WARFARIN SOD 1 MG TAB PO SCH (16:00)
[2017-10-19] MEDS ORDERED: ONETTES4 (14:57)
[2017-10-19] MEDS ORDERED: ALCO1PAD (14:57)
[2017-10-19] MEDS ORDERED: LANC1MIS74 (14:57)
== END 2017-10-18 16:13 | disposition home or self-care (01) | DRG 638 ==
LOC: PHED 17:15 → PHEDA 21:36 → PH3A 23:52
PROVIDERS: ADMIT Family Medicine; ATTEND Family Medicine
DX: E11.65 Type 2 diabetes mellitus with hyperglycemia (principal); I13.0 Hypertensive heart and chronic kidney disease with heart failure and stage 1 through stage 4 chronic kidney disease, or unspecified chronic kidney disease; I95.9 Hypotension, unspecified; I42.9 Cardiomyopathy, unspecified; I50.9 Heart failure, unspecified; F03.90 Unspecified dementia, unspecified severity, without behavioral disturbance, psychotic disturbance, mood disturbance, and anxiety; Z94.0 Kidney transplant status; E87.1 Hypo-osmolality and hyponatremia; E11.21 Type 2 diabetes mellitus with diabetic nephropathy; E11.40 Type 2 diabetes mellitus with diabetic neuropathy, unspecified; E11.22 Type 2 diabetes mellitus with diabetic chronic kidney disease; N18.3 Chronic kidney disease, stage 3 (moderate); Z79.84 Long term (current) use of oral hypoglycemic drugs; I48.0 Paroxysmal atrial fibrillation; Z79.01 Long term (current) use of anticoagulants; Z79.82 Long term (current) use of aspirin; I25.10 Atherosclerotic heart disease of native coronary artery without angina pectoris; E78.5 Hyperlipidemia, unspecified; J44.9 Chronic obstructive pulmonary disease, unspecified; E86.0 Dehydration; R25.1 Tremor, unspecified; I70.0 Atherosclerosis of aorta; N40.0 Benign prostatic hyperplasia without lower urinary tract symptoms; G47.33 Obstructive sleep apnea (adult) (pediatric); F17.210 Nicotine dependence, cigarettes, uncomplicated; Z90.49 Acquired absence of other specified parts of digestive tract; Z85.038 Personal history of other malignant neoplasm of large intestine; Z91.81 History of falling; Z91.19 Patient's noncompliance with other medical treatment and regimen
CPT/HCPCS: 36600; 71010; 80048; 80053; 81001; 82010; 82805; 82948; 84155; 85025; 85610; 87040; 87493; 93005; 96361; 96365; 96375; J0696; J1644; J1815; J7030